=== PATIENT | male | born 1950 | race Caucasian/White ===

== ENCOUNTER 2021-08-02 07:06 | Emergency (ER) | payer MEDICARE ==
[2021-08-02 07:18] VITALS: BP 118/78; PULSE 67; RESP 20; TEMP 98
[2021-08-02] MEDS ORDERED: KETOROLAC 15 MG/ML 1 ML VIAL IM STA (07:36)
--- NOTE | 2021-08-02 08:11 | ED ---
General Adult HPI - General Chief complaint: Back Pain/Injury Stated complaint: Fall 2 days ago, Back Pain Time Seen by Provider: 08/02/21 07:25 Source: patient, RN notes reviewed, old records reviewed Mode of arrival: ambulatory Limitations: no limitations - History of Present Illness Initial comments: 70-year-old male presenting status post fall which occurred 2 days prior. Patient states he was wearing flip-flops, slipped on a wet floor landing on his right upper back and chest wall. He's had pain with deep breathing since that time. There is no head or neck trauma. No loss consciousness. He did injure his right elbow but states this is feeling somewhat better. - Related Data Previous Rx's Medication Instructions Recorded HYDROcodone/APAP 5-325MG [[place] 1 tab PO Q6HR PRN #12 tab 08/02/21 5-325] Ibuprofen [Motrin] 600 mg PO Q8HR PRN #24 tab 08/02/21 Allergies Allergy/AdvReac Type Severity Reaction Status Date / Time No Known Allergies Allergy Verified 08/02/21 07:17 Review of Systems ROS Statement: Those systems with pertinent positive or pertinent negative responses have been documented in the HPI. ROS Other: All systems not noted in ROS Statement are negative. Past Medical History Past Medical History: No Reported History History of Any Multi-Drug Resistant Organisms: None Reported Past Surgical History: No Surgical Hx Reported Past Psychological History: No Psychological Hx Reported Smoking Status: Never smoker Past Alcohol Use History: None Reported Past Drug Use History: None Reported General Exam Limitations: no limitations General appearance: alert, in no apparent distress Head exam: Present: atraumatic, normocephalic Eye exam: Present: normal appearance, PERRL ENT exam: Present: normal exam Neck exam: Present: normal inspection. Absent: tenderness, meningismus Respiratory exam: Present: chest wall tenderness (Right lateral). Absent: respiratory distress, wheezes, rales Cardiovascular Exam: Present: regular rate, normal rhythm GI/Abdominal exam: Present: soft. Absent: distended, tenderness, guarding Extremities exam: Present: normal inspection, normal capillary refill. Absent: pedal edema, calf tenderness Neurological exam: Present: alert, oriented X3, CN II-XII intact. Absent: motor sensory deficit Psychiatric exam: Present: normal affect, normal mood Skin exam: Present: warm, dry, intact. Absent: cyanosis, diaphoretic Course Vital Signs 08/02/21 07:14 Temperature 98 F Pulse Rate 67 Respiratory 20 Rate Blood Pressure 118/78 O2 Sat by Pulse 96 Oximetry Medical Decision Making - Medical Decision Making 70-year-old male with right lateral chest wall pain. No external signs of trauma. No crepitus, normal air entry bilaterally. Stable vitals. X-ray negative for displaced fracture. Patient will be prescribed anti-inflammatory and [place] for suspect clinical rib fracture. Disposition Clinical Impression: Rib contusion Disposition: HOME SELF-CARE Condition: Good Instructions (If sedation given, give patient instructions): Rib Contusion (ED) Additional Instructions: Please follow up with her primary care physician. Prescriptions: Ibuprofen [Motrin] 600 mg PO Q8HR PRN #24 tab PRN Reason: Pain HYDROcodone/APAP 5-325MG [[place] 5-325] 1 tab PO Q6HR PRN #12 tab PRN Reason: Pain Is patient prescribed a controlled substance at d/c from ED?: No Referrals: None,Stated [REFERRING] - 1-2 days Time of Disposition: 08:29
--- NOTE | 2021-08-02 08:31 | XR ---
EXAMINATION TYPE: XR ribs RT w pa chest xray DATE OF EXAM: 08/02/2021 CLINICAL HISTORY: Chest and right-sided rib pain after fall injury. TECHNIQUE: Single frontal view of the chest is obtained. A frontal and oblique images of the right-si ded ribs. COMPARISON: None FINDINGS: There is elevated left hemidiaphragm with left basilar opacity favoring scarring and/or at electasis. Right lung is clear. The cardiac silhouette size is mildly enlarged with atherosclerotic a juan david. The osseous structures are intact. Dedicated images of right-sided ribs show no acute displaced fracture. Overlying soft tissue is unrem arkable. IMPRESSION: 1. Mild cardiomegaly with left basilar linear scarring and/or atelectasis. 2. No acute displaced right-sided rib fracture is seen.
== END 2021-08-02 08:52 | disposition home or self-care (01) ==
LOC: EC 07:06
DX: S20.211A Contusion of right front wall of thorax, initial encounter (principal); W01.0XXA Fall on same level from slipping, tripping and stumbling without subsequent striking against object, initial encounter
CPT/HCPCS: 99283; 96372; 71101; J1885